=== PATIENT | male | born 1965 | race Caucasian/White ===

== ENCOUNTER 2017-03-05 16:09 | Emergency (ER) | payer BC ==
[~2017-03-05] VITALS: Ht 195.6 cm; Wt 103.6 kg
[2017-03-05] MEDS ORDERED: SODIUM CHLORIDE 0.9% 1,000ML IVBOLUS ONE (17:00)
[2017-03-05] MEDS ORDERED: SODIUM CHLORIDE FLUSH 10ML SYR IVF ONE (17:00)
[2017-03-05 17:07] LABS: HEMATOCRIT 47.8 % (39.2-51.8); HEMOGLOBIN 16.2 g/dL (13.7-18.0)
[2017-03-05 17:19] LABS: BLOOD UREA NITROGEN 18 mg/dL (7-18)
[2017-03-05 17:26] LABS: IS PT STATUS REG ER OR PRE ER? YES
[2017-03-05 19:11] LABS: IS PT STATUS REG ER OR PRE ER? YES
[2017-03-05 19:30] VITALS: BP 116/75
== END 2017-03-05 20:05 | disposition home or self-care (01) ==
LOC: ED 17:47
DX: R07.89 Other chest pain (principal); I25.2 Old myocardial infarction
CPT/HCPCS: 36415; 71010; 80048; 82040; 84484; 85025; 85610; 85730; 93005; 96360; 96361; 99285; J7030